=== PATIENT | male | born 1965 | race Caucasian/White ===

== ENCOUNTER → 2023-06-01 07:37 | Outpatient (CLI) | payer OTHER, SELFPAY ==
--- NOTE | ~2023-06-01 | MR_ITS ---
EXAMINATION: MR brain/brain stem wo/w con DATE: 06/01/2023 08:31 INDICATION: Vertigo TECHNIQUE: Magnetic resonance imaging (MRI) of the brain and brainstem was performed without and with 20 mL Multihance intravenous contrast. Sequences included sagittal and axial T1-weighted FSE, axial diffusion-weighted FS EPI, axial T2*-weighted GRE, axial T2-weighted FLAIR Propeller, axial T2-weight ed Propeller, small nsvun-ac-ljas coronal FIESTA, small krfrn-kg-imuv coronal T1-weighted FSE, and sm all osrkb-kj-ecab axial T1-weighted SPGR. Postcontrast sequences included axial T1-weighted FSE, smal l rfcte-cq-szer coronal T1-weighted FSE, and small aiacy-zw-hxjp axial T1-weighted SPGR. Apparent dif fusion coefficient (ADC) maps were created. COMPARISON: None. FINDINGS: There are no areas of restricted diffusion to suggest acute infarction. No intracranial hemorrhage or abnormal intracranial mass lesion. There are no intraparenchymal signal abnormalities seen on the ot her pulse sequences. The ventricles are symmetric and normal in size. There are no abnormal extra-axi al fluid collections. Normal seventh/eighth cranial nerve complexes. No cerebellopontine angles jameson s. No evidence of mastoid or middle ear fluid. Flow voids are seen in the cerebral arteries on the T2-weigh regino sequences consistent with their expected patency. Mild mucosal thickening the paranasal sinuses w ith mucous retention cyst in the right maxillary sinus. Visualized orbits and soft tissues are unrema rkable. There are no areas of abnormal enhancement on the post contrast images. IMPRESSION: 1. Normal brain. No acute intracranial process or abnormally enhancing brain lesions.. 2. Temporal bones and bilateral middle and inner ear structures are unremarkable. No etiology identif ied for reported vertigo. Reviewed, dictated and finalized at location B. [facility] [employer]PAIR[facility] IMPRESSION: 1. Normal brain. No acute intracranial process or abnormally enhancing brain le sions.. 2. Temporal bones and bilateral middle and inner ear structures are unremarkabl e. No etiology identified for reported vertigo.
== END ==
PROVIDERS: PCP Family Medicine; Visit Provider Family Medicine
DX: H91.90 Unspecified hearing loss, unspecified ear (principal); R42 Dizziness and giddiness
CPT/HCPCS: 70553; A9577